=== PATIENT | female | born 1980 | race Two or more races ===

== ENCOUNTER → 2016-10-08 | Outpatient (CLI) | payer BC ==
[~2016-10-08] MED LIST: INSUINJ IJ; INSUPOW SC; PREN-129 OR
== END | disposition home or self-care (01) ==
LOC: LAB 15:36
PROVIDERS: ATTEND Internal Medicine
DX: R11.0 Nausea (principal)
CPT/HCPCS: 36415; 84702

== ENCOUNTER → 2016-11-24 | Outpatient (CLI) | payer BC ==
[2016-11-24 10:30] LABS: Basophils # (auto) 0 uL; Basophils % (auto) 0.3 % (0.0-2.0); Eosinophils # (auto) 0.1 uL; Eosinophils % (auto) 1.8 % (0.0-7.0); Hematocrit 39.4 % (36.0-46.0); Hemoglobin 13.2 g/dL (12.2-16.2); Lymphocytes # (auto) 1.6 uL; Lymphocytes % (auto) 23.5 % (10.0-50.0); Mean Corpuscular Hemoglobin 27.3 pg (28.0-32.0); Mean Corpuscular Hgb Conc. 33.5 g/dL (32.0-36.0); Mean Corpuscular Volume 81.5 fL (80.0-100.0); Mean Platelet Volume 8.5 fL (7.4-10.4); Monocytes # (auto) 0.3 uL; Monocytes % (auto) 4.1 % (0.0-12.0); Neutrophils # (auto) 4.9 uL; Neutrophils % (auto) 70.3 % (37.0-80.0); Platelet Count (auto) 301 10^3/uL (140-450); Red Cell Distribution Width 15.7 % (11.6-16.0); White Blood Cell 6.9 10^3/uL (4.4-10.8)
== END | disposition home or self-care (01) ==
LOC: LAB 08:57
PROVIDERS: ATTEND Obstetrics & Gynecology
DX: Z34.80 Encounter for supervision of other normal pregnancy, unspecified trimester (principal); Z11.3 Encounter for screening for infections with a predominantly sexual mode of transmission; Z31.430 Encounter of female for testing for genetic disease carrier status for procreative management
CPT/HCPCS: 36415; 81220; 82951; 84144; 84702; 85025; 86592; 86703; 86762; 86850; 86900; 86901; 87086; 87340

== ENCOUNTER → 2016-12-03 | Outpatient (CLI) | payer BC | END | disposition home or self-care (01) | LOC: LAB 12:23 | PROVIDERS: ATTEND Obstetrics & Gynecology | DX: Z34.80 Encounter for supervision of other normal pregnancy, unspecified trimester (principal); R73.09 Other abnormal glucose; Z36 Encounter for antenatal screening of mother | CPT/HCPCS: 36415; 83036 ==

== ENCOUNTER → 2017-04-01 | Outpatient (CLI) | payer BC | END | disposition home or self-care (01) | LOC: LAB 11:48 | PROVIDERS: ATTEND Obstetrics & Gynecology | DX: Z34.80 Encounter for supervision of other normal pregnancy, unspecified trimester (principal) | CPT/HCPCS: 86850; 86900; 86901 ==

== ENCOUNTER 2017-05-05 09:45 | Observation (INO) | payer BC ==
[2017-05-05] MEDS ORDERED: PREN-96 PO (10:47)
[2017-05-05] MEDS ORDERED: GLYB2.5T76 PO (10:47)
== END 2017-05-05 10:35 | disposition home or self-care (01) | DRG 781 ==
LOC: LDRP 09:45
PROVIDERS: ADMIT Specialist; ATTEND Specialist
DX: O24.419 Gestational diabetes mellitus in pregnancy, unspecified control (principal); Z3A.33 33 weeks gestation of pregnancy
CPT/HCPCS: 59025; 81002; G0378

== ENCOUNTER 2017-05-09 13:10 | Observation (INO) | payer BC ==
[~2017-05-09 13:10] MED LIST changes: +GLYB2.5T76 PO; +PREN-96 PO
== END 2017-05-09 14:40 | disposition home or self-care (01) | DRG 781 ==
LOC: LDRP 13:10
PROVIDERS: ADMIT Specialist; ATTEND Specialist
DX: O24.419 Gestational diabetes mellitus in pregnancy, unspecified control (principal); O09.523 Supervision of elderly multigravida, third trimester; Z3A.34 34 weeks gestation of pregnancy
CPT/HCPCS: 59025; 81002; 82962; G0378; 96361; 96365; 96375

== ENCOUNTER 2017-05-12 14:20 | Observation (INO) | payer BC ==
[2017-05-12] MEDS ORDERED: SODIUM CHLORIDE 0.9% 1,000 ML IV ONE (15:30)
== END 2017-05-12 16:25 | disposition home or self-care (01) | DRG 998 ==
LOC: LDRP 14:20
PROVIDERS: ADMIT Obstetrics & Gynecology; ATTEND Obstetrics & Gynecology
DX: O24.919 Unspecified diabetes mellitus in pregnancy, unspecified trimester (principal); Z3A.00 Weeks of gestation of pregnancy not specified
CPT/HCPCS: 59025; 76818; 81002; G0378

== ENCOUNTER 2017-05-16 13:20 | Observation (INO) | payer BC ==
[2017-05-16] MEDS ORDERED: PREN-96 PO (13:49)
[2017-05-16] MEDS ORDERED: LEVEMIR SC (13:53)
[2017-05-16] MEDS ORDERED: PREN-129 PO (13:53)
[2017-05-16] MEDS ORDERED: FERR-7 PO (13:53)
== END 2017-05-16 15:20 | disposition home or self-care (01) | DRG 781 ==
LOC: LDRP 13:20
PROVIDERS: ADMIT Obstetrics & Gynecology; ATTEND Obstetrics & Gynecology
DX: O24.419 Gestational diabetes mellitus in pregnancy, unspecified control (principal); Z3A.35 35 weeks gestation of pregnancy
CPT/HCPCS: 59025; 76818; 81002; 82962; G0378

== ENCOUNTER 2017-05-26 12:30 | Observation (INO) | payer BC | END 2017-05-26 14:15 | disposition home or self-care (01) | DRG 781 | LOC: LDRP 12:30 | PROVIDERS: ADMIT Obstetrics & Gynecology; ATTEND Obstetrics & Gynecology | DX: O24.419 Gestational diabetes mellitus in pregnancy, unspecified control (principal); O26.893 Other specified pregnancy related conditions, third trimester; R10.2 Pelvic and perineal pain; M54.9 Dorsalgia, unspecified; Z3A.36 36 weeks gestation of pregnancy | CPT/HCPCS: 59025; 76818; 81002; 82948; 82962; G0378 ==

== ENCOUNTER → 2017-05-26 | Outpatient (CLI) | payer BC ==
[~2017-05-26] MED LIST changes: +FERR-7 PO; -INSUINJ IJ; -INSUPOW SC; +LEVEMIR SC; -PREN-129 OR; +PREN-129 PO; -PREN-96 PO
[2017-05-26 12:45] LABS: Basophils # (auto) 0.1 uL; Basophils % (auto) 0.7 % (0.0-2.0); Eosinophils # (auto) 0.1 uL; Eosinophils % (auto) 0.7 % (0.0-7.0); Hematocrit 37.9 % (36.0-46.0); Hemoglobin 12.9 g/dL (12.2-16.2); Lymphocytes # (auto) 1.9 uL; Lymphocytes % (auto) 25.4 % (10.0-50.0); Mean Corpuscular Hemoglobin 29.5 pg (28.0-32.0); Mean Corpuscular Volume 86.8 fL (80.0-100.0); Mean Platelet Volume 9.1 fL (6.9-10.8); Monocytes # (auto) 0.4 uL; Monocytes % (auto) 5.5 % (0.0-12.0); Neutrophils # (auto) 5.1 uL; Neutrophils % (auto) 67.7 % (37.0-80.0); Nucleated Red Blood Cells % 0.1 %; Platelet Count (auto) 223 10^3/uL (140-450); Red Cell Distribution Width 16.4 % (11.8-14.3); White Blood Cell 7.5 10^3/uL (4.4-10.8)
== END | disposition home or self-care (01) ==
LOC: LAB 11:55
PROVIDERS: ATTEND Obstetrics & Gynecology
DX: O09.529 Supervision of elderly multigravida, unspecified trimester (principal); Z3A.00 Weeks of gestation of pregnancy not specified
CPT/HCPCS: 36415; 85025; 86592

== ENCOUNTER 2017-05-31 16:55 | Observation (INO) | payer BC ==
[2017-05-31] MEDS ORDERED: GLYB2.5T76 PO (18:27)
[2017-05-31] MEDS ORDERED: INSLANTI SC (18:27)
[2017-05-31] MEDS ORDERED: PREN-96 PO (18:27)
== END 2017-05-31 18:32 | disposition home or self-care (01) | DRG 781 ==
LOC: LDRP 16:55
PROVIDERS: ADMIT Specialist; ATTEND Specialist
DX: O24.419 Gestational diabetes mellitus in pregnancy, unspecified control (principal); Z3A.00 Weeks of gestation of pregnancy not specified
CPT/HCPCS: 59025; 76818; 81002; G0378

== ENCOUNTER 2017-06-02 11:55 | Observation (INO) | payer BC ==
[~2017-06-02 11:55] MED LIST changes: +INSLANTI SC; +PREN-96 PO
== END 2017-06-02 13:10 | disposition home or self-care (01) | DRG 781 ==
LOC: LDRP 11:55
PROVIDERS: ADMIT Obstetrics & Gynecology; ATTEND Obstetrics & Gynecology
DX: O24.419 Gestational diabetes mellitus in pregnancy, unspecified control (principal); O36.8130 Decreased fetal movements, third trimester, not applicable or unspecified; Z3A.37 37 weeks gestation of pregnancy
CPT/HCPCS: 59025; 76818; 81002; 82948; 82962; G0378

== ENCOUNTER 2017-06-08 11:55 | Inpatient (IN) | payer BC ==
[~2017-06-08] VITALS: Ht 157.5 cm; Wt 120.7 kg
[~2017-06-08 11:55] MED LIST changes: -LEVEMIR SC; -PREN-96 PO
[2017-06-08] MEDS ORDERED: LACTATED RINGER'S 1,000 ML IV SCH (12:35)
[2017-06-08 14:10] LABS: Basophils # (auto) 0 uL; Basophils % (auto) 0.4 % (0.0-2.0); Eosinophils # (auto) 0 uL; Eosinophils % (auto) 0.6 % (0.0-7.0); Hemoglobin 12.8 g/dL (12.2-16.2); Lymphocytes # (auto) 1.5 uL; Lymphocytes % (auto) 19.6 % (10.0-50.0); Mean Corpuscular Hemoglobin 29.4 pg (28.0-32.0); Mean Corpuscular Hgb Conc. 34.5 g/dL (32.0-36.0); Mean Corpuscular Volume 85.3 fL (80.0-100.0); Mean Platelet Volume 9.4 fL (6.9-10.8); Monocytes # (auto) 0.4 uL; Monocytes % (auto) 5.2 % (0.0-12.0); Neutrophils # (auto) 5.6 uL; Neutrophils % (auto) 74.2 % (37.0-80.0); Nucleated Red Blood Cells % 0.1 %; Platelet Count (auto) 207 10^3/uL (140-450); Red Cell Distribution Width 16.5 % (11.8-14.3); White Blood Cell 7.5 10^3/uL (4.4-10.8)
[2017-06-08 14:11] LABS: Urine Bilirubin Negative (Negative); Urine Blood 2+ /uL (Negative); Urine Color Yellow (Yellow); Urine Glucose Normal (Normal); Urine Ketone Negative (Negative); Urine Nitrite Negative (Negative); Urine RBC <1 /hpf (0 - 4); Urine Squamous Epithelial Cell FEW /hpf (<5); Urine Urobilinogen Normal (Negative); Urine pH 6.5 (5.0-8.0)
[2017-06-08 14:17] LABS: INR 0.85 (0.9-1.15); Partial Thromboplastin Time 27.7 sec (22.64-33.71); Prothrombin Time 9.2 sec (9.37-12.3)
[2017-06-08 14:43] LABS: Albumin 2.3 g/dL (3.4-5.0); BUN/Creatinine Ratio 15.3; Bilirubin, Total 0.3 mg/dL (0.2-1.0); Calcium 8.3 mg/dL (8.5-10.1); Potassium 4.1 mmol/L (3.5-5.1); Total Protein 6.6 g/dL (6.4-8.2)
[2017-06-08] MEDS ORDERED: IBUPROFEN 600 MG TAB PO PRN (14:45)
[2017-06-08] MEDS ORDERED: ONDANSETRON HCL 4 MG/2 ML VIAL IV PRN ×3 (14:45→19:15)
[2017-06-08] MEDS ORDERED: ceFAZolin 1GM/50ML D5W 50 ML IV ONE (15:00)
[2017-06-08] MEDS ORDERED: MORPHINE SULF(PF) 0.5MG/ML 10ML VIAL ONE (17:34)
[2017-06-08] MEDS ORDERED: fentaNYL CITRATE 100 MCG/2 ML VL ONE ×2 (17:34)
[2017-06-08] MEDS ORDERED: PHENYLEPHRINE HCL 10 MG/ML VL ONE (17:48)
[2017-06-08] MEDS ORDERED: ONDANSETRON HCL 4 MG/2 ML VIAL ONE (17:48)
[2017-06-08] MEDS ORDERED: METOCLOPRAMIDE HCL 5MG/ml INJ 2ml VIAL ONE (17:48)
[2017-06-08] MEDS ORDERED: ceFAZolin 1GM VL ONE (17:48)
[2017-06-08] MEDS ORDERED: OXYTOCIN 10 UNIT/ML 10ML VIAL ONE (18:02)
[2017-06-08] MEDS ORDERED: MIDAZOLAM HCL 1MG/1ML-2 ML VIAL ONE ×3 (18:09→18:20)
[2017-06-08] MEDS ORDERED: PROPOFOL 10 MG/ML 20 ML IV ONE (18:25)
[2017-06-08] MEDS: LACTATED RINGER'S 1,000 ML IV SCH (19:01)
[2017-06-08] MEDS ORDERED: KETOROLAC TROMETH 30 MG/ML 1ML VIAL ONE (19:14)
[2017-06-08] MEDS ORDERED: KETOROLAC TROMETH 30 MG/ML 1ML VIAL IV ONE (19:15)
[2017-06-08] MEDS ORDERED: hydrALAZINE HCL 20 MG/ML VL IV PRN (19:15)
[2017-06-08] MEDS ORDERED: ONDANSETRON HCL 4 MG/2 ML VIAL IV ONE (19:15)
[2017-06-08] MEDS ORDERED: ACCU-CHEK COMFORT CURVE STRIP VI ONE (19:15)
[2017-06-08] MEDS ORDERED: fentaNYL CITRATE 100 MCG/2 ML VL IV PRN (19:15)
[2017-06-08] MEDS ORDERED: HYDROmorphone HCL 2 MG/ML VL IV PRN ×3 (19:15)
[2017-06-08] MEDS ORDERED: diphenhdrAMINE HCL 50 MG/1 ML VL IV PRN (19:15)
[2017-06-08] MEDS ORDERED: NALOXONE HCL 0.4 MG/ML VIAL IV PRN (19:15)
[2017-06-08 20:00] VITALS: BP 155/70
[2017-06-08 20:30] VITALS: BP 166/74
[2017-06-08 21:00] VITALS: BP 151/67
[2017-06-08 22:00] VITALS: BP 145/68
[2017-06-08 23:00] VITALS: BP 141/83
[2017-06-08] MEDS: ceFAZolin 1GM/50ML D5W 50 ML IV SCH (23:14)
[2017-06-09] VITALS (13 sets, daily range): BP systolic 106–156; BP diastolic 57–86
[2017-06-09] MEDS: KETOROLAC TROMETH 30 MG/ML 1ML VIAL IV SCH ×2 (00:40→05:49)
[2017-06-09] MEDS: LACTATED RINGER'S 1,000 ML IV SCH (03:01)
[2017-06-09] MEDS: ceFAZolin 1GM/50ML D5W 50 ML IV SCH ×2 (06:48→11:15)
[2017-06-09] MEDS ORDERED: LACTATED RINGER'S 1,000 ML IV SCH (07:22)
[2017-06-09] MEDS ORDERED: BISACODYL 10 MG RECT SUPP PR PRN ×2 (07:30→08:45)
[2017-06-09] MEDS ORDERED: HYDROcodone-ACET 5/325MG TAB PO PRN (08:45)
[2017-06-09 08:54] LABS: Basophils # (auto) 0 uL; Basophils % (auto) 0.6 % (0.0-2.0); Eosinophils # (auto) 0.1 uL; Eosinophils % (auto) 1.1 % (0.0-7.0); Hematocrit 30.6 % (36.0-46.0); Hemoglobin 10.9 g/dL (12.2-16.2); Lymphocytes # (auto) 2.3 uL; Lymphocytes % (auto) 30.6 % (10.0-50.0); Mean Corpuscular Hemoglobin 30.7 pg (28.0-32.0); Mean Corpuscular Hgb Conc. 35.5 g/dL (32.0-36.0); Mean Corpuscular Volume 86.4 fL (80.0-100.0); Mean Platelet Volume 9.3 fL (6.9-10.8); Monocytes # (auto) 0.5 uL; Monocytes % (auto) 5.9 % (0.0-12.0); Neutrophils # (auto) 4.7 uL; Neutrophils % (auto) 61.8 % (37.0-80.0); Platelet Count (auto) 171 10^3/uL (140-450); White Blood Cell 7.6 10^3/uL (4.4-10.8)
[2017-06-09] MEDS: DOCUSATE SOD 100 MG CAP PO SCH ×2 (09:30→22:01)
[2017-06-09] MEDS: DOCUSATE CALCIUM 240 MG CAP PO SCH (09:31)
[2017-06-09] MEDS ORDERED: DOCUSATE SOD 100 MG CAP PO SCH (10:00)
[2017-06-09] MEDS ORDERED: SIMETHICONE 80 MG CHEWABLE TABLET PO SCH (12:00)
[2017-06-09] MEDS: SIMETHICONE 80 MG CHEWABLE TABLET PO SCH ×3 (12:59→22:01)
[2017-06-09] MEDS: IBUPROFEN 800 MG TAB PO PRN ×2 (13:06→22:01)
[2017-06-09] MEDS: HYDROcodone-ACET 5/325MG TAB PO PRN (17:30)
[2017-06-09] MEDS ORDERED: diphenhdrAMINE HCL 25 MG CAP PO PRN (22:15)
[2017-06-10 03:10] VITALS: BP 129/92
[2017-06-10] MEDS: SIMETHICONE 80 MG CHEWABLE TABLET PO SCH ×4 (05:31→22:09)
[2017-06-10] MEDS: IBUPROFEN 800 MG TAB PO PRN ×2 (06:00→18:51)
[2017-06-10 08:17] VITALS: BP 127/61
[2017-06-10] MEDS: DOCUSATE SOD 100 MG CAP PO SCH ×2 (10:00→22:09)
[2017-06-10] MEDS: DOCUSATE CALCIUM 240 MG CAP PO SCH (10:00)
[2017-06-10 12:00] VITALS: BP 127/87
[2017-06-10] MEDS: HYDROcodone-ACET 5/325MG TAB PO PRN (12:46)
[2017-06-10 16:36] VITALS: BP 142/79
[2017-06-10 19:42] VITALS: BP 136/72
[2017-06-10 23:30] VITALS: BP 134/63
[2017-06-11 03:20] VITALS: BP 130/62
[2017-06-11] MEDS: SIMETHICONE 80 MG CHEWABLE TABLET PO SCH (06:22)
[2017-06-11] MEDS: IBUPROFEN 800 MG TAB PO PRN (07:22)
[2017-06-11 08:00] VITALS: BP 115/59
[2017-06-11] MEDS: DOCUSATE CALCIUM 240 MG CAP PO SCH (10:00)
[2017-06-11] MEDS: DOCUSATE SOD 100 MG CAP PO SCH (10:00)
== END 2017-06-11 12:00 | disposition home or self-care (01) | DRG 765 ==
LOC: OBSVTOIN 11:55 → LDRP 11:55
PROVIDERS: ADMIT Specialist; ATTEND Specialist
PROC: 4A0HXCZ Measurement of Products of Conception, Cardiac Rate, External Approach (ICD-10-PCS; 2017-06-08)
PROC: 10D00Z1 Extraction of Products of Conception, Low, Open Approach (ICD-10-PCS; principal; 2017-06-08 17:34)
DX: O34.211 Maternal care for low transverse scar from previous cesarean delivery (principal); Z68.42 Body mass index [BMI] 45.0-49.9, adult; E66.01 Morbid (severe) obesity due to excess calories; O99.824 Streptococcus B carrier state complicating childbirth; O42.92 Full-term premature rupture of membranes, unspecified as to length of time between rupture and onset of labor; F41.9 Anxiety disorder, unspecified; O99.214 Obesity complicating childbirth; O24.429 Gestational diabetes mellitus in childbirth, unspecified control; O99.344 Other mental disorders complicating childbirth; Z37.0 Single live birth; Z3A.38 38 weeks gestation of pregnancy; Z88.2 Allergy status to sulfonamides; Z91.018 Allergy to other foods; Z79.4 Long term (current) use of insulin
CPT/HCPCS: 36415; 59025; 76818; 80053; 81001; 81002; 82947; 82948; 82962; 85025; 85610; 85730; 86850; 86870; 86900; 86901; 96374; J0690; J1885; J2250; J2405; J2590; J2704

== ENCOUNTER → 2018-07-06 | Outpatient (CLI) | payer BC ==
[~2018-07-06] MED LIST changes: -GLYB2.5T76 PO; +GLYB2.5T8 PO
[2018-07-06 08:33] LABS: Basophils # (auto) 0 uL; Basophils % (auto) 0.7 % (0.0-2.0); Hematocrit 34.8 % (36.0-46.0); Lymphocytes # (auto) 1.7 uL; Lymphocytes % (auto) 27.3 % (10.0-50.0); Monocytes # (auto) 0.4 uL
[2018-07-06 08:35] LABS: Eosinophils # (auto) 0.2 uL; Eosinophils % (auto) 2.4 % (0.0-7.0); Mean Corpuscular Hemoglobin 22.6 pg (28.0-32.0); Mean Corpuscular Hgb Conc. 31.7 g/dL (32.0-36.0); Mean Corpuscular Volume 71.5 fL (80.0-100.0); Monocytes % (auto) 5.7 % (0.0-12.0); Neutrophils # (auto) 4.1 uL; Neutrophils % (auto) 63.9 % (37.0-80.0); Platelet Count (auto) 252 10^3/uL (140-450); Red Blood Cells 4.87 10^6/uL (4.0-5.20); White Blood Cell 6.4 10^3/uL (4.4-10.8)
[2018-07-06 09:52] LABS: Calcium 8.2 mg/dL (8.5-10.1); Potassium 4.1 mmol/L (3.5-5.1)
[2018-07-06 10:01] LABS: BUN/Creatinine Ratio 16.1; Bilirubin, Total 0.3 mg/dL (0.2-1.0); CRP High Sensitivity 1.55 mg/dL (< 0.3); Total Protein 7.1 g/dL (6.4-8.2)
[2018-07-06 11:03] LABS: Urine WBC None Seen /hpf (0 - 5)
[2018-07-06 11:39] LABS: Urine Bacteria FEW /hpf (None Seen); Urine Blood Negative /uL (Negative)
== END | disposition home or self-care (01) ==
LOC: LAB 08:05
PROVIDERS: ATTEND Internal Medicine
DX: Z00.01 Encounter for general adult medical examination with abnormal findings (principal); E66.9 Obesity, unspecified; M54.2 Cervicalgia; M25.50 Pain in unspecified joint
CPT/HCPCS: 36415; 80053; 80061; 81001; 84439; 84443; 85025; 85652; 86141

== ENCOUNTER → 2018-12-03 | Outpatient (CLI) | payer BC ==
[2018-12-03 14:53] LABS: Basophils # (auto) 0 uL; Eosinophils # (auto) 0.1 uL; Lymphocytes # (auto) 1.8 uL; Monocytes # (auto) 0.3 uL; White Blood Cell 6.3 10^3/uL (4.4-10.8)
[2018-12-03 14:56] LABS: Basophils % (auto) 0.7 % (0.0-2.0); Eosinophils % (auto) 1.1 % (0.0-7.0); Hemoglobin 10.7 g/dL (12.2-16.2); Lymphocytes % (auto) 28.8 % (10.0-50.0); Mean Corpuscular Hemoglobin 21.4 pg (28.0-32.0); Mean Corpuscular Hgb Conc. 31.4 g/dL (32.0-36.0); Mean Corpuscular Volume 68.2 fL (80.0-100.0); Monocytes % (auto) 5.1 % (0.0-12.0); Neutrophils # (auto) 4.1 uL; Neutrophils % (auto) 64.3 % (37.0-80.0); Nucleated Red Blood Cells % 0.2 %; Platelet Count (auto) 300 10^3/uL (140-450); Red Blood Cells 4.99 10^6/uL (4.0-5.20); Red Cell Distribution Width 17.1 % (11.8-14.3)
[2018-12-03 16:25] LABS: Albumin 3.4 g/dL (3.4-5.0); Calcium 8.3 mg/dL (8.5-10.1); Potassium 3.6 mmol/L (3.5-5.1)
[2018-12-03 16:40] LABS: BUN/Creatinine Ratio 10.5; Bilirubin, Total 0.2 mg/dL (0.2-1.0); Total Protein 7.3 g/dL (6.4-8.2)
== END | disposition home or self-care (01) ==
LOC: LAB 14:08
PROVIDERS: ATTEND Internal Medicine
DX: D64.9 Anemia, unspecified (principal); R73.01 Impaired fasting glucose; R53.83 Other fatigue
CPT/HCPCS: 36415; 80053; 83036; 84439; 84443; 85025; 85652

== ENCOUNTER → 2019-08-17 | Outpatient (CLI) | payer BC ==
[2019-08-17 09:23] LABS: Urine WBC None Seen /hpf (0 - 5)
[2019-08-17 09:27] LABS: Basophils # (auto) 0 uL; Basophils % (auto) 0.5 % (0.0-2.0); Eosinophils # (auto) 0.1 uL; Eosinophils % (auto) 1.9 % (0.0-7.0); Hematocrit 40.5 % (36.0-46.0); Hemoglobin 13.8 g/dL (12.2-16.2); Lymphocytes # (auto) 1.8 uL; Lymphocytes % (auto) 26.9 % (10.0-50.0); Mean Corpuscular Hemoglobin 28.3 pg (28.0-32.0); Mean Corpuscular Hgb Conc. 34.1 g/dL (32.0-36.0); Mean Corpuscular Volume 83.2 fL (80.0-100.0); Monocytes # (auto) 0.4 uL; Monocytes % (auto) 5.4 % (0.0-12.0); Neutrophils # (auto) 4.4 uL; Neutrophils % (auto) 65.3 % (37.0-80.0); Platelet Count (auto) 227 10^3/uL (140-450); Red Blood Cells 4.87 10^6/uL (4.0-5.20); Red Cell Distribution Width 14.7 % (11.8-14.3); White Blood Cell 6.7 10^3/uL (4.4-10.8)
[2019-08-17 09:31] LABS: Urine Bacteria NONE SEEN /hpf (None Seen); Urine Blood Negative /uL (Negative); Urine Mucus FEW (None Seen); Urine Specific Gravity 1.021 (1.001-1.035)
[2019-08-17 10:02] LABS: Albumin 3.3 g/dL (3.4-5.0); Calcium 7.9 mg/dL (8.5-10.1); Potassium 3.9 mmol/L (3.5-5.1)
[2019-08-17 10:07] LABS: BUN/Creatinine Ratio 21.1; Bilirubin, Total 0.4 mg/dL (0.2-1.0); Total Protein 7.4 g/dL (6.4-8.2)
== END | disposition home or self-care (01) ==
LOC: LAB 08:57
PROVIDERS: ATTEND Internal Medicine
DX: E61.1 Iron deficiency (principal); D64.9 Anemia, unspecified; R25.2 Cramp and spasm
CPT/HCPCS: 36415; 80053; 80061; 81001; 82550; 83540; 84439; 84443; 85025; 85652

== ENCOUNTER → 2020-01-24 | Outpatient (CLI) | payer OTHER | END | disposition home or self-care (01) | LOC: LAB 13:01 | PROVIDERS: ATTEND Nurse Practitioner Family | DX: Z03.818 Encounter for observation for suspected exposure to other biological agents ruled out (principal); Z20.828 Contact with and (suspected) exposure to other viral communicable diseases ==

== ENCOUNTER → 2020-02-09 | Outpatient (CLI) | payer BC | END | disposition home or self-care (01) | LOC: LAB 15:56 | PROVIDERS: ATTEND Internal Medicine | DX: N76.0 Acute vaginitis (principal); Z84.2 Family history of other diseases of the genitourinary system | CPT/HCPCS: 87070 ==

== ENCOUNTER 2020-05-06 15:06 | Emergency (ER) | payer BC ==
[~2020-05-06] VITALS: Ht 157.5 cm; Wt 111.1 kg
[2020-05-06 17:33] VITALS: BP 167/89
== END 2020-05-06 17:55 | disposition home or self-care (01) ==
LOC: ER 15:06
DX: J20.9 Acute bronchitis, unspecified (principal); R05 Cough; I10 Essential (primary) hypertension; Z20.828 Contact with and (suspected) exposure to other viral communicable diseases
CPT/HCPCS: 36415; 71045; 87426; 99284; C9803; U0003

== ENCOUNTER 2020-08-20 16:25 | Emergency (ER) | payer BC ==
[~2020-08-20] VITALS: Ht 157.5 cm; Wt 113.4 kg
[2020-08-20 16:46] VITALS: BP 161/107
== END 2020-08-20 19:42 | disposition home or self-care (01) ==
LOC: ER 16:25 → EEVIPCON 16:25 → ER 19:42
DX: R43.9 Unspecified disturbances of smell and taste (principal); Z20.828 Contact with and (suspected) exposure to other viral communicable diseases
CPT/HCPCS: 36415; 87426

== ENCOUNTER → 2020-08-20 | Outpatient (CLI) | payer OTHER | END | disposition home or self-care (01) | LOC: LAB 17:00 | PROVIDERS: ATTEND Physician Assistant | DX: Z20.828 Contact with and (suspected) exposure to other viral communicable diseases (principal) ==

== ENCOUNTER → 2020-09-12 | Outpatient (CLI) | payer BC | END | disposition home or self-care (01) | LOC: LAB 11:30 | PROVIDERS: ATTEND Internal Medicine | DX: J02.9 Acute pharyngitis, unspecified (principal) | CPT/HCPCS: 87070 ==

== ENCOUNTER → 2020-09-13 | Outpatient (CLI) | payer BC ==
[2020-09-13 15:33] LABS: Basophils # (auto) 0.1 10 ^3/uL (0-0.2); Basophils % (auto) 0.9 % (0.0-2.0); Eosinophils # (auto) 0.1 10 ^3/uL (0-0.8); Eosinophils % (auto) 2.7 % (0.0-7.0); Hematocrit 36.8 % (36.0-46.0); Hemoglobin 12.7 g/dL (12.2-16.2); Lymphocytes # (auto) 1.7 10 ^3/uL (0.4-5.4); Lymphocytes % (auto) 31.9 % (10.0-50.0); Mean Corpuscular Hgb Conc. 34.7 g/dL (32.0-36.0); Mean Corpuscular Volume 80.8 fL (80.0-100.0); Monocytes # (auto) 0.4 10 ^3/uL (0-1.3); Neutrophils % (auto) 56.5 % (37.0-80.0); Platelet Count (auto) 248 10^3/uL (140-450); Red Blood Cells 4.55 10^6/uL (4.0-5.20); Red Cell Distribution Width 14.4 % (11.8-14.3); White Blood Cell 5.4 10^3/uL (4.4-10.8)
[2020-09-13 16:24] LABS: Albumin 3.1 g/dL (3.4-5.0); Calcium 7.5 mg/dL (8.5-10.1); Potassium 3.9 mmol/L (3.5-5.1)
[2020-09-13 16:35] LABS: BUN/Creatinine Ratio 14.5; Bilirubin, Total 0.2 mg/dL (0.2-1.0); Total Protein 6.9 g/dL (6.4-8.2)
== END | disposition home or self-care (01) ==
LOC: LAB 15:14
PROVIDERS: ATTEND Internal Medicine
DX: J02.9 Acute pharyngitis, unspecified (principal); F41.9 Anxiety disorder, unspecified
CPT/HCPCS: 36415; 80053; 84439; 84443; 85025; 85652; 86308

== ENCOUNTER → 2020-11-22 | Outpatient (CLI) | payer BC | END | disposition home or self-care (01) | LOC: XYW 11:54 | PROVIDERS: ATTEND Orthopaedic Surgery Adult Reconstructive Orthopaedic Surgery | DX: M19.011 Primary osteoarthritis, right shoulder (principal); M75.111 Incomplete rotator cuff tear or rupture of right shoulder, not specified as traumatic; M25.711 Osteophyte, right shoulder; M75.81 Other shoulder lesions, right shoulder; M25.411 Effusion, right shoulder; M89.311 Hypertrophy of bone, right shoulder | CPT/HCPCS: 73221 ==

== ENCOUNTER → 2020-12-06 | Outpatient (CLI) | payer BC ==
[~2020-12-06] MED LIST changes: +BUPIVACAINE HCL 0.25% P/F 10 ML VIAL ONE; +IOHEXOL 300 MG/ML 100ML BOTTLE IJ ONE; +LIDOCAINE 2%HCL (LOCAL ANESTH.) INJ 20ML MDV ONE; +methylPREDNISolone ACETATE 80 MG/ML VL ONE
== END | disposition home or self-care (01) ==
LOC: XY 11:11
PROVIDERS: ATTEND Orthopaedic Surgery Adult Reconstructive Orthopaedic Surgery
DX: M25.511 Pain in right shoulder (principal); Z98.890 Other specified postprocedural states; Z79.899 Other long term (current) drug therapy; Z88.2 Allergy status to sulfonamides; Z88.8 Allergy status to other drugs, medicaments and biological substances
CPT/HCPCS: 20610; 77002; A4223; J1040; J3490; Q9967; 73020; 76000

== ENCOUNTER → 2021-02-06 | Outpatient (CLI) | payer BC ==
[~2021-02-06] MED LIST changes: -BUPIVACAINE HCL 0.25% P/F 10 ML VIAL ONE; -IOHEXOL 300 MG/ML 100ML BOTTLE IJ ONE; -LIDOCAINE 2%HCL (LOCAL ANESTH.) INJ 20ML MDV ONE; -methylPREDNISolone ACETATE 80 MG/ML VL ONE
[2021-02-06 09:08] LABS: Basophils # (auto) 0.1 10 ^3/uL (0-0.2); Basophils % (auto) 0.9 % (0.0-2.0); Eosinophils # (auto) 0.1 10 ^3/uL (0-0.8); Eosinophils % (auto) 1.8 % (0.0-7.0); Hematocrit 37.7 % (36.0-46.0); Hemoglobin 12.9 g/dL (12.2-16.2); Lymphocytes # (auto) 1.8 10 ^3/uL (0.4-5.4); Lymphocytes % (auto) 23.1 % (10.0-50.0); Mean Corpuscular Hemoglobin 28.2 pg (28.0-32.0); Mean Corpuscular Hgb Conc. 34.2 g/dL (32.0-36.0); Mean Corpuscular Volume 82.4 fL (80.0-100.0); Monocytes # (auto) 0.5 10 ^3/uL (0-1.3); Neutrophils # (auto) 5.3 10 ^3/uL (1.6-8.6); Neutrophils % (auto) 68.2 % (37.0-80.0); Platelet Count (auto) 285 10^3/uL (140-450); Red Blood Cells 4.57 10^6/uL (4.0-5.20); Red Cell Distribution Width 15.1 % (11.8-14.3); White Blood Cell 7.7 10^3/uL (4.4-10.8)
[2021-02-06 09:20] LABS: Urine Bacteria FEW /hpf (None Seen); Urine Blood Negative /uL (Negative); Urine Specific Gravity 1.018 (1.001-1.035); Urine WBC 14 /hpf (0 - 5)
[2021-02-06 09:33] LABS: Albumin 3.2 g/dL (3.4-5.0); Calcium 8.3 mg/dL (8.5-10.1)
[2021-02-06 09:38] LABS: BUN/Creatinine Ratio 19.7; Bilirubin, Total 0.4 mg/dL (0.2-1.0); Total Protein 7.1 g/dL (6.4-8.2)
== END | disposition home or self-care (01) ==
LOC: LAB 08:30
PROVIDERS: ATTEND Internal Medicine
DX: N92.0 Excessive and frequent menstruation with regular cycle (principal); E66.9 Obesity, unspecified; F41.9 Anxiety disorder, unspecified
CPT/HCPCS: 80053; 80061; 81001; 83036; 83540; 84439; 84443; 85652

== ENCOUNTER → 2021-03-28 | Outpatient (CLI) | payer BC | END | disposition home or self-care (01) | LOC: XYW 12:45 | PROVIDERS: ATTEND Internal Medicine | DX: I07.1 Rheumatic tricuspid insufficiency (principal); R60.9 Edema, unspecified | CPT/HCPCS: 93306 ==

== ENCOUNTER → 2022-01-24 | Day surgery (SDC) | payer BC ==
[2022-01-22 10:49] LABS: Urine Bacteria NONE SEEN /hpf (None Seen); Urine Blood Negative /uL (Negative); Urine Hyaline Cast FEW /lpf (0 - 2); Urine Mucus FEW (None Seen); Urine Specific Gravity 1.026 (1.001-1.035); Urine WBC 44 /hpf (0 - 5)
[2022-01-22 10:56] LABS: INR 0.99 (0.9-1.15); Partial Thromboplastin Time 27.8 sec (23.6-33.0)
[2022-01-22 10:57] LABS: Basophils # (auto) 0 10 ^3/uL (0-0.2); Basophils % (auto) 0.4 % (0.0-2.0); Eosinophils # (auto) 0.2 10 ^3/uL (0-0.8); Eosinophils % (auto) 2.3 % (0.0-7.0); Hemoglobin 13.1 g/dL (12.2-16.2); Lymphocytes # (auto) 2.1 10 ^3/uL (0.4-5.4); Lymphocytes % (auto) 27.5 % (10.0-50.0); Mean Corpuscular Hemoglobin 27.4 pg (28.0-32.0); Mean Corpuscular Hgb Conc. 33.7 g/dL (32.0-36.0); Mean Corpuscular Volume 81.2 fL (80.0-100.0); Monocytes # (auto) 0.5 10 ^3/uL (0-1.3); Monocytes % (auto) 6.1 % (0.0-12.0); Neutrophils # (auto) 4.9 10 ^3/uL (1.6-8.6); Neutrophils % (auto) 63.7 % (37.0-80.0); Red Cell Distribution Width 14.4 % (11.8-14.3); White Blood Cell 7.6 10^3/uL (4.4-10.8)
[2022-01-22 11:18] LABS: BUN/Creatinine Ratio 18.5; Calcium 8.4 mg/dL (8.5-10.1); Potassium 4.1 mmol/L (3.5-5.1)
[2022-01-22 11:23] LABS: Bilirubin, Total 0.3 mg/dL (0.2-1.0)
[~2022-01-24] VITALS: Ht 157.5 cm; Wt 125.0 kg
[~2022-01-24] MED LIST changes: +DexAMETHasone SOD PHOS 10MG/1ML VIAL INJ ONE; +ESCI20TA PO; +FAMOTIDINE (10MG/ML) 2ML VL IV ONE; -GLYB2.5T8 PO; +GLYCOPYRROLATE 0.2 MG/ML 1ML VIAL ONE; +HYDR-4902 PO; +HYDROmorphone HCL 2 MG/ML VL/or syr IV PRN; -INSLANTI SC; +KETOROLAC TROMETH 30 MG/ML 1ML VIAL ONE; +LACTATED RINGER'S 1,000 ML IV SCH; +LIDOCAINE 2% (LOCAL ANESTH.) PF 5ml SDV ONE; +MEPERIDINE HCL (25 MG/ML) 1ML VIAL ONE; +MIDAZOLAM HCL 2MG/2ML 2ml VIAL (1mg/ml) ONE; +ONDA-144 PO; +ONDANSETRON HCL 4 MG/2 ML VIAL IV PRN; +ONDANSETRON HCL 4 MG/2 ML VIAL ONE; -PREN-129 PO; +PROPOFOL 10 MG/ML 20 ML IV ONE; +SUCCINYLCHOLINE CHLORIDE 20 MG/ML 10ML VIAL IV ONE; +ceFAZolin 1GM/50ML 100 ML IV ONE; +fentaNYL CITRATE 100 MCG/2 ML VL ONE
[2022-01-24 09:50] VITALS: BP 149/87
== END | disposition home or self-care (01) ==
LOC: SUR 06:25
PROVIDERS: ATTEND Obstetrics & Gynecology
DX: N93.9 Abnormal uterine and vaginal bleeding, unspecified (principal); F41.9 Anxiety disorder, unspecified; F17.200 Nicotine dependence, unspecified, uncomplicated; F32.A Depression, unspecified; E66.01 Morbid (severe) obesity due to excess calories; Z82.49 Family history of ischemic heart disease and other diseases of the circulatory system; Z98.891 History of uterine scar from previous surgery; Z88.1 Allergy status to other antibiotic agents; Z68.43 Body mass index [BMI] 50.0-59.9, adult; Z20.822 Contact with and (suspected) exposure to COVID-19
CPT/HCPCS: 36415; 58563; 80053; 81001; 81025; 84702; 85025; 85610; 85730; 86850; 86900; 86901; 88305; J0330; J0690; J1100; J1885; J2001; J2175; J2250; J2405; J2704; J3010; J3490; U0003

== ENCOUNTER → 2022-03-19 | Outpatient (CLI) | payer BC ==
[~2022-03-19] MED LIST changes: -DexAMETHasone SOD PHOS 10MG/1ML VIAL INJ ONE; -FAMOTIDINE (10MG/ML) 2ML VL IV ONE; -GLYCOPYRROLATE 0.2 MG/ML 1ML VIAL ONE; -HYDROmorphone HCL 2 MG/ML VL/or syr IV PRN; -KETOROLAC TROMETH 30 MG/ML 1ML VIAL ONE; -LACTATED RINGER'S 1,000 ML IV SCH; -LIDOCAINE 2% (LOCAL ANESTH.) PF 5ml SDV ONE; -MEPERIDINE HCL (25 MG/ML) 1ML VIAL ONE; -MIDAZOLAM HCL 2MG/2ML 2ml VIAL (1mg/ml) ONE; -ONDANSETRON HCL 4 MG/2 ML VIAL IV PRN; -ONDANSETRON HCL 4 MG/2 ML VIAL ONE; -PROPOFOL 10 MG/ML 20 ML IV ONE; -SUCCINYLCHOLINE CHLORIDE 20 MG/ML 10ML VIAL IV ONE; -ceFAZolin 1GM/50ML 100 ML IV ONE; -fentaNYL CITRATE 100 MCG/2 ML VL ONE
[2022-03-19 13:10] LABS: Basophils # (auto) 0.1 10 ^3/uL (0-0.2); Eosinophils # (auto) 0.2 10 ^3/uL (0-0.8); Mean Corpuscular Volume 80.3 fL (80.0-100.0); Monocytes # (auto) 0.4 10 ^3/uL (0-1.3); Neutrophils # (auto) 4.6 10 ^3/uL (1.6-8.6); White Blood Cell 7.3 10^3/uL (4.4-10.8)
[2022-03-19 13:12] LABS: Basophils % (auto) 0.8 % (0.0-2.0); Eosinophils % (auto) 2.6 % (0.0-7.0); Hematocrit 38.3 % (36.0-46.0); Hemoglobin 13.1 g/dL (12.2-16.2); Lymphocytes % (auto) 28.1 % (10.0-50.0); Mean Corpuscular Hemoglobin 27.4 pg (28.0-32.0); Mean Corpuscular Hgb Conc. 34.1 g/dL (32.0-36.0); Monocytes % (auto) 5.4 % (0.0-12.0); Neutrophils % (auto) 63.1 % (37.0-80.0); Nucleated Red Blood Cells % 0.1 %; Red Blood Cells 4.77 10^6/uL (4.0-5.20); Red Cell Distribution Width 14.8 % (11.8-14.3)
[2022-03-19 13:34] LABS: Follicle Stimulating Hormone 10.95 IU/L (SEE BELOW); Leuteinizing Hormone 5.2 IU/L
== END | disposition home or self-care (01) ==
LOC: LAB 12:43
PROVIDERS: ATTEND Obstetrics & Gynecology
DX: R53.83 Other fatigue (principal); N95.1 Menopausal and female climacteric states
CPT/HCPCS: 36415; 82670; 83001; 83002; 84403; 84443; 85025

== ENCOUNTER → 2022-03-26 | Outpatient (CLI) | payer OTHER ==
[2022-03-27 11:36] LABS: Hepatitis B Surface Antibody Negative (Negative)
== END | disposition home or self-care (01) ==
LOC: LAB 10:49
PROVIDERS: ATTEND Family Medicine
DX: S61.202A Unspecified open wound of right middle finger without damage to nail, initial encounter (principal); Z77.21 Contact with and (suspected) exposure to potentially hazardous body fluids; Y92.239 Unspecified place in hospital as the place of occurrence of the external cause; W46.1XXA Contact with contaminated hypodermic needle, initial encounter; Y99.0 Civilian activity done for income or pay
CPT/HCPCS: 36415; 86703; 86706; 86803; 87340

== ENCOUNTER → 2022-07-22 | Outpatient (CLI) | payer BC | END | disposition home or self-care (01) | LOC: LAB 15:47 | PROVIDERS: ATTEND Internal Medicine | DX: N76.0 Acute vaginitis (principal) | CPT/HCPCS: 87070 ==